=== PATIENT | male | born 1990 | race Caucasian/White ===

== ENCOUNTER 2016-07-17 18:57 | Emergency (ER) | payer SELFPAY ==
[2016-07-17] MEDS ORDERED: oxyCOD/ACETAMIN 5 MG/325 MG TABLET PO STA (19:20)
[2016-07-17] MEDS ORDERED: oxyCOD/ACETAMIN 5 MG/325 MG TABLET PO ONE (19:27)
[2016-07-17] MEDS ORDERED: DOXYCYCLINE 100 MG TABLET PO STA (21:32)
[2016-07-17] MEDS ORDERED: oxyCODONE/ACET 5/325 Prepack 4 PO STA (21:32)
[2016-07-17] MEDS ORDERED: cefTRIAXone 250 MG VIAL IM STA (21:32)
[2016-07-17] MEDS ORDERED: oxyCODONE/ACET 5/325 Prepack 4 PO ONE (21:36)
[2016-07-17] MEDS ORDERED: DOXYCYCLINE 100 MG TABLET PO ONE (21:36)
[2016-07-17] MEDS ORDERED: cefTRIAXone 1 GM VIAL ONE (21:36)
[2016-07-17] MEDS ORDERED: LIDOCAINE-MPF 1% 5 ML VIAL ONE (21:36)
[2016-07-17] MEDS ORDERED: cefTRIAXone 250 MG VIAL ONE (21:38)
== END 2016-07-17 22:01 | disposition home or self-care (01) ==
DX: N45.3 Epididymo-orchitis (principal); F17.200 Nicotine dependence, unspecified, uncomplicated; R03.0 Elevated blood-pressure reading, without diagnosis of hypertension
CPT/HCPCS: 76870; 81003; 87491; 87591; 93975; 96372; 99283; 99284; A9270

== ENCOUNTER 2018-11-18 10:14 | Emergency (ER) | payer OTHER ==
--- NOTE | 2018-11-18 11:14 | XRAY Report ---
Reason: injury Procedure Date: 11/18/2018 Accession Number: [id number] / [id number] Procedure: XR - Hand 3 View RT CPT Code: FULL RESULT: EXAM: RIGHT HAND RADIOGRAPHY EXAM DATE: 11/18/2018 11:07 AM. CLINICAL HISTORY: Injury. COMPARISON: None. TECHNIQUE: 3 views. FINDINGS: Bones: Minimally displaced oblique fracture through the midshaft of the fourth metacarpal. Joints: Normal. No subluxations. Soft Tissues: Normal. No soft tissue swelling. IMPRESSION: Minimally displaced oblique fracture through the midshaft of the fourth metacarpal. RADIA
--- NOTE | 2018-11-18 12:31 | ED Physician Documentation ---
PD HPI UPPER EXT INJURY - Stated complaint Stated Complaint: R HAND INJ - Chief complaint Chief Complaint: Ext Problem - History obtained from History obtained from: Patient - History of Present Illness Location: Right, Hand Type of injury: Twist (drill twisted in his hand.) Where injury occurred: Work Timing - duration: Hours (2) Timing - details: Abrupt onset Pain level max: 8 Pain level now: 5 Improved by: Rest, Ice, Immobilization Worsened by: Moving, Palpating Associated symptoms: Swelling. No: Weakness, Numbness, Tingling Contributing factors: No: Anticoagulated Similar symptoms before: Has not had sx before Recently seen: Not recently seen - Additonal information Additional information: pt is right handed Review of Systems Constitutional: denies: Fever Neurologic: denies: Focal weakness, Numbness PD PAST MEDICAL HISTORY - Past Medical History Cardiovascular: None Respiratory: Asthma Endocrine/Autoimmune: None GI: None : None HEENT: None Psych: Anxiety Musculoskeletal: None Derm: None - Past Surgical History Past Surgical History: Yes - Present Medications Home Medications: Ambulatory Orders Medication Instructions Recorded Confirmed Hydrocodone/Acetaminophen 1 - 2 each PO Q6H PRN #14 tablet 11/18/18 [Hydrocodon-Acetaminophen 5-325] Ibuprofen [Motrin] 800 mg PO Q8H PRN #30 tablet 11/18/18 - Allergies Allergies/Adverse Reactions: Allergies Allergy/AdvReac Type Severity Reaction Status Date / Time morphine Allergy Severe Rash Verified 11/18/18 10:20 - Social History Does the pt smoke?: Yes Smoking Status: Current every day smoker Does the pt drink ETOH?: No Does the pt have substance abuse?: Yes - Immunizations Immunizations are current?: Yes - POLST Patient has POLST: No PD ED PE NORMAL - Vitals Vital signs reviewed: Yes - General General: Alert and oriented X 3, No acute distress - HEENT HEENT: Moist mucous membranes - Neck Neck: Supple, no meningeal sign - Cardiac Cardiac: RRR - Respiratory Respiratory: No respiratory distress, Clear bilaterally - Derm Derm: Warm and dry - Extremities Extremities: Other (R hand - TTP over the 3-5th MC. NVI. otherwise normal exam. ) - Neuro Neuro: Alert and oriented X 3 - Psych Psych: Normal mood, Normal affect Results - Vitals Vitals: Vital Signs - 24 hr 11/18/18 10:18 Temperature 37.1 C Heart Rate 71 Respiratory 20 Rate Blood Pressure 149/89 H O2 Saturation 100 Oxygen O2 Source Room air - Rads (name of study) r hand xray Radiology: Prelim report reviewed, EMP read contemporaneously, See rad report (Minimally displaced oblique fracture through the midshaft of the fourth metacarpal. ) Procedures - Splint (location) R hand Splint applied by: Physician, Tech Type of splint: Fiberglass, Short arm, Volar cock up Other: Patient tolerated well, No complications, Neurovascular intact PD MEDICAL DECISION MAKING - ED course Complexity details: reviewed results, re-evaluated patient, considered differential, d/w patient ED course: 28-year-old male with a right fourth metacarpal fracture. Placed in a volar splint. Neurovascular intact after splint application. We will follow-up with orthopedics for further care. Patient counseled regarding signs and symptoms for which I believe and urgent re-evaluation would be necessary. Patient with good understanding of and agreement to plan and is comfortable going home at this time This document was made in part using voice recognition software. While efforts are made to proofread this document, sound alike and grammatical errors may occur. Departure - Departure Disposition: 01 Home, Self Care Clinical Impression: Fracture of fourth metacarpal bone of right hand Qualifiers: Encounter type: initial encounter Fracture type: closed Metacarpal location: shaft Fracture alignment: displaced Qualified Code(s): S62.324A - Displaced fracture of shaft of fourth metacarpal bone, right hand, initial encounter for closed fracture Condition: Good Instructions: ED Fx Hand Closed Follow-Up: [facility] [Provider Group] - Within 1 week Prescriptions: Hydrocodone/Acetaminophen [Hydrocodon-Acetaminophen 5-325] 1 - 2 each PO Q6H PRN #14 tablet PRN Reason: pain Ibuprofen [Motrin] 800 mg PO Q8H PRN #30 tablet PRN Reason: PAIN &/OR FEVER Comments: Wear the splint until released by orthopedics. They will likely change you into a cast next week. Return if you worsen. Do not drink alcohol or drive while on narcotic pain medicine. Note that many narcotic pain relievers also contain tylenol/acetaminophen. Please ensure that your total dose of acetaminophen from all sources does not exceed 3 grams (3000mg) per day. You may constipated on this medication, take a stool softener such as "Colace" twice a day while you are on it. Also recommend a [id number] laxative such as senna or MiraLAX any day that you do not have a bowel movement. If you received narcotic pain medication in the emergency department, do not drive or operate machinery for the next 24 hours. Forms: Activity restrictions
[2018-11-18 12:45] VITALS: BP 148/97
== END 2018-11-18 12:53 | disposition home or self-care (01) ==
LOC: ED 10:14
DX: S62.324A Displaced fracture of shaft of fourth metacarpal bone, right hand, initial encounter for closed fracture (principal); W31.0XXA Contact with mining and earth-drilling machinery, initial encounter; Y99.0 Civilian activity done for income or pay; F17.200 Nicotine dependence, unspecified, uncomplicated
CPT/HCPCS: 29125; 99283